=== PATIENT | male | born 1970 | race Caucasian/White ===

== ENCOUNTER 2019-04-07 02:55 | Emergency (ER) | payer SELFPAY ==
[2019-04-07 03:02] VITALS: BP 137/85; PULSE 85; RESP 18; TEMP 36.8; O2SAT 98
--- NOTE | 2019-04-07 03:08 | ED.GENADUL_ITS ---
Discharge Plan Disposition Patient Disposition: HOME Condition: Good Discharge Details Chief Complaint: GenMedical Clinical Impression: Cellulitis of left leg, Acute lymphangitis of left lower extremity Primary Care Provider: Callie Madison ED Provider: Vipul Mota Meds and New Rx's Prescriptions: New cephalexin 500 mg capsule 500 mg PO QID Qty: 36 RF: 0 Discharge Instructions Instructions: Cephalexin (By mouth), Cellulitis (ED) Additional Instructions: Please rest and keep your leg elevated. Drink plenty of fluids to stay hydrated. Antibiotic as directed, next dose due at 10:30 this morning. Follow- up with primary care in the next 24 to 48 hours for recheck. Return to ED for high fever, difficulty breathing, mental status changes, increasing pain/swell ing/redness of the leg. Referrals: Callie Madison [Primary Care Provider] - Medical Decision Making This appears to be a cellulitis with lymphangitic streaking into the groin area. He does not appear toxic. He is not febrile. He is not tachycardic. He does not have significant pain. He has taken Keflex but not on a regular every 6 hour basis. There is no previous history of MRSA. There is no evidence of abscess. Will place a line and check laboratory studies, obtain blood cultures, give 2 g of cefazole IV. Patient labs are okay. White count is normal. There is no shift. BUN is a little high and potassium a little low likely related to his recent GI illness. He is doing better and tolerating p.o. now and this should correct on its own. He has had his antibiotics. We will give prescription for cephalexin and have him follow-up with his primary care in the next 24 to 48 hours for recheck. If he develops fever, difficulty breathing, mental status changes, increasing leg pain/swelling/redness he should return to ED. Lab Data Lab results reviewed: Yes I reviewed the patient's lab results. HPI General Mode of arrival: ambulatory . Date/Time Provider Initiated Documentation: 04/07/19 03:06 . Limitations to Documentation: no limitations . Information obtained by: patient and RN notes reviewed . HPI Narrative: Patient presents to ED with complaint of left lower extremity redness and swelling. Patient notes that a couple weeks ago he woke with an abrasion or possible insect bite in the left lateral calf area. Took a while to heal up. He traveled to [place] last week just returning. He reports that while in [facility] he developed fever, chills, vomiting and diarrhea associated with presumed food poisoning. This was over the weekend. He slowly recovered Friday and Friday. He was actually able to eat and drink yesterday. The fevers and chills are gone. Vomiting has stopped. The diarrhea has almost resolved. But, at about the time though symptoms were resolving, he developed redness in the left lower extremity. That has continued to spread and now he has streaking up his thigh and into the groin. He is not having fevers and chills anymore. He is actually feeling better. He does not have significant pain in the leg at all. His had some leftover Keflex. He took a gram of that on Friday. He took 500 mg Friday morning and Friday night. He reports headache over the weekend which is better. He reports having some URI symptoms last week which are also improving. Related Data Home Medications Medication Instructions Recorded Confirmed cephalexin 500 mg PO QID #36 cap 04/07/19 Previous Rx's Medication Instructions Recorded cephalexin 500 mg PO QID #36 cap 04/07/19 Allergies Allergy/AdvReac Type Severity Reaction Status Date / Time No Known Allergies Allergy Unverified 04/07/19 03:06 General Stated Complaint: GenMedical EVARISTO: 3 Review of Systems Narrative: As per HPI otherwise 8 systems reviewed and negative. FORMERLY [facility] Medical History No active medical problems (Acute) Surgical History No history of previous surgery (Acute) Social History Smoking/Tobacco Use Status: Current every day Alcohol Intake: never Drug use: Socially Substance use type: marijuana Do you feel safe at home: Yes Do you feel safe in your relationship?: Yes Exam Narrative Exam Narrative: Vitals: Afebrile with normal vital signs and room air pulse oximetry. Const: WDWN male in NAD. HEENT: NC/AT. Normal facial exam. Eyes: Normal conjunctiva and sclera. Neck: Supple. Trachea midline. Lungs: Normal respiratory effort. Neuro: A+O x 3. Normal speech, mentation, gait. No focal motor or sensory deficit. Ext: Left lower extremity with erythematous/purplish discoloration involving anterior tibial area extending around the medial calf. It is nontender to palpation. There is streaking up the medial and anterior portion of the thigh. There is erythema and the left groin with lymphadenopathy present. Distal pulses are intact. Other extremities normal. Skin: Left lower extremity findings as described above. Course Vital Signs Vital signs: Vital Signs Temperature 98.2 F 04/07/19 03:02 Pulse 85 04/07/19 03:02 Respiratory Rate 18 04/07/19 03:02 Blood Pressure 137/85 04/07/19 03:02 Pulse Oximetry 98 04/07/19 03:02 Temperature 98.2 F 04/07/19 03:02 Temperature Source Skin 04/07/19 03:02 Pulse 85 04/07/19 03:02 Respiratory Rate 18 04/07/19 03:02 Blood Pressure 137/85 04/07/19 03:02 Blood Pressure Position Sitting 04/07/19 03:02 Pulse Oximetry 98 04/07/19 03:02 Oxygen Delivery Method Room Air 04/07/19 03:02 Oxygen Flow Rate 0 04/07/19 03:02 Pain Level 1 04/07/19 03:02
[2019-04-07 03:50] LABS: Abs Immature Grans 0.02 k/cumm (0.0-0.09); Absolute Basophil Count 0.02 k/cumm (0.0-0.2); Absolute Eosinophil Count 0.16 k/cumm (0.0-0.7); Absolute Lymphocyte Count 1.38 k/cumm (1.2-3.4); Absolute Monocyte Count 0.75 k/cumm (0.11-0.7); Absolute Neutrophil Count 4.04 k/cumm (1.2-6.7); Basophils % 0.3; Eosinophils % 2.5; HCT 40.9 % (40.0-50.0); HGB 14.5 g/dL (13.5-17.5); Immature Grans % 0.3; Lymphocytes % 21.7; Mean Corp. HGB Concentration 35.5 g/dL (32.0-36.0); Mean Corpuscular Hemoglobin 31.3 pg (27.0-33.0); Mean Corpuscular Volume 88.1 fL (80-95); Mean Platelet Volume 10.9 fL (8.0-11.0); Monocytes % 11.8; Neutrophils % 63.4; Platelet Count 169 x1000/uL (130-400); RBC 4.64 m/cumm (4.50-6.00); RBC Distribution Width 12.4 % (11.8-14.1); White Blood Cell Count 6.37 k/cumm (4.4-10.8)
[2019-04-07 04:02] LABS: ALT 72 U/L (16-63); AST 41 U/L (15-37); Albumin 3.1 g/dL (3.4-5.0); Alkaline Phosphatase 103 U/L (46-116); BUN 29 mg/dL (7-18); Bilirubin, Total 0.4 mg/dL (0.2-1.0); CREATININE 0.94 mg/dL (0.70-1.30); Calcium 8.6 mg/dL (8.5-10.1); Chloride 102 mmol/L (98-107); Glucose 104 mg/dL (74-106); Potassium 3.3 mmol/L (3.5-5.1); Sodium 139 mmol/L (136-145); Total Protein 7.4 g/dL (6.4-8.2)
[2019-04-07] MEDS: ceFAZolin 2 GM/50 ML BAG IVPB (04:10)
[2019-04-07 05:35] VITALS: BP 122/74; PULSE 78; RESP 18; TEMP 36.8
== END 2019-04-07 05:35 | disposition home or self-care (01) ==
PROVIDERS: Emergency Provider Emergency Medicine; PCP Family Medicine
DX: L03.116 Cellulitis of left lower limb (principal); L03.126 Acute lymphangitis of left lower limb
CPT/HCPCS: 36415; 80053; 87040; 96365; 99284; 85025; J0690

== ENCOUNTER 2020-06-19 16:39 | Outpatient (REF) | payer OTHER, SELFPAY ==
[2020-06-19 13:15] LABS: ALT 26 U/L (16-63); AST 15 U/L (15-37); Albumin 3.7 g/dL (3.4-5.0); Alkaline Phosphatase 84 U/L (46-116); Anion Gap 10.4 mmol/L (3-11); BUN 14 mg/dL (7-18); Bilirubin, Total 0.3 mg/dL (0.2-1.0); CO2 23.6 mmol/L (21.0-32.0); CREATININE 0.9 mg/dL (0.70-1.30); Calcium 8.9 mg/dL (8.5-10.1); Calculated LDL 137 mg/dL (<100); Chloride 110 mmol/L (98-107); Cholesterol 197 mg/dL (<200); Glucose 71 mg/dL (74-106); HDL Cholesterol 36 mg/dL (40-60); Potassium 4.3 mmol/L (3.5-5.1); Sodium 144 mmol/L (136-145); Total Protein 6.9 g/dL (6.4-8.2); Triglyceride 123 mg/dL (<150)
== END 2020-06-19 16:40 | disposition home or self-care (01) ==
LOC: NCHCN 16:39
PROVIDERS: PCP Family Medicine; Visit Provider Family Medicine
DX: Z00.00 Encounter for general adult medical examination without abnormal findings (principal); Z13.220 Encounter for screening for lipoid disorders; Z13.228 Encounter for screening for other metabolic disorders
CPT/HCPCS: 80053; 80061

== ENCOUNTER 2020-10-30 06:10 | Day surgery (SDC) | payer OTHER, SELFPAY ==
[2020-10-30 06:24] VITALS: BP 108/77; PULSE 61; RESP 20; TEMP 36.5; O2SAT 99
--- NOTE | 2020-10-30 06:29 | W.COLOREPORT ---
Date of service: 10/30/20 Time of Service: :33 Colonoscopy Report Date of procedure: 10/30/20 Pre-op diagnosis general: Colon Cancer Screening Post-op diagnosis procedure note: other (colorectal polyps and internal hemorrhoids) Procedure: Colonoscopy with polypectomy Surgeon: Kristy Pinto Anesthesia Type: General:No Airway (ASA 2/Jack Tyson, GAIL) Estimated blood loss (mL): 3 Pathology: other (Descending, sigmoid and rectal polyps) Complications: None Disposition: same day Indications: The patient is here for Colonoscopy pre-op. He has no family history of colon cancer. He has not had any bowel habit changes. -Discussed colonoscopy bowel prep as well as the procedure. Discussed possible complications of the procedure to include bleeding, pain, perforation, missed small lesion/polyp, sore throat, aspiration and adverse reaction to the medications. Questions were answered to patient?s satisfaction. No guarantees were implied or given. Prep: Miralax/Dulcolax Procedure Start Time: :33 Procedure End Time: :56 Retraction Time: 15 minutes Findings: 3 small polyps Grade 1 internal hemorrhoids Procedure Description: After informed consent was obtained the patient was taken to the procedure room and placed in a left decubitous position. Monitors were applied and a time out was done. The patients name, date of , procedure, allergies to medications and metal in their body was reviewed. The patient was then sedated. Once sedated and comfortable a rectal exam was done. External exam was normal. Internal exam revealed a normal sphincter tone and no palpable masses. The prostate felt smooth. The scope was then introduced and retro-flexed. Grade 1 internal hemorrhoids were indetified as well as one rectal polyp on retro-flexion. No masses were identified on retro-flexion. The scope was then advanced to the cecum without difficulty. The ileocecal vlave and appendiceal orifice were identified. The prep was good. The scope was then slowly retracted over 15 minutes back into the rectum. Polyps were removed with cold forceps in the descending colon, sigmoid colon and rectum. There was no diverticulosis noted. The scope was removed and the patient was woken up and taken back to Same day surgery in stable condition. The patient tolerated the procedure well and there were no immediate complications. Follow up: The patient should follow up in 5 years unless they develop changes in bowel habits or other new gastrointestinal complaints.
--- NOTE | 2020-10-30 06:30 | W.PM.DSUDISC ---
Discharge Plan Disposition Patient Disposition: HOME Condition: Good Discharge Details Reason For Visit: Colonoscopy Attending Provider: Kristy Pinto Primary Care Provider: Callie Madison Home Meds and New Rx's Prescriptions: Continued multivitamin Tablet 1 tab PO DAILY RF: 0 Discharge Instructions Instructions: Hemorrhoids (DC), Colorectal Polyps (DC) Additional Instructions: Findings: 3 small polyps Please call if you develop: fevers >101.5 Nausea or Vomiting Abdominal pain that is not transient Rectal bleeding that is more then a tbsp A hard abdomen and inability to pass gas DAY SURGERY UNIT POST ENDOSCOPY INSTRUCTIONS Instructions for everyone who is given Anesthesia: For your safety, please do the following for the next 24 Hours: a. Do not drive or operate dangerous equipment b. Do not drink alcohol beverages or use any recreational drugs for the first 24 hours or while taking pain medications. The medications in your body may have a reaction that can be dangerous. c. Do not make any important decisions or sign any important papers 1. Generally there are no restrictions on your activity after a day or so has gone by, but you may feel a bit fatigued for a few days. 2. After you arrive home you may have a light meal and return to a normal diet as you can tolerate it without feeling sick to your stomach. 3. After surgery, you may feel pain or discomfort. This should be only transient, but if it persists please contact your doctor. 4. If there are any questions regarding the findings of your procedure, please feel free to contact your doctor. 6. If you are unable to contact your doctor with a problem, contact the hospital at [phone]. 7. Continue all your regular medications unless directed otherwise. I understand the above instructions and have no questions. Signature of Patient or Responsible Adult Escort Date/Time Name of Responsible Adult Escort Signature of Nurse Date/Time Activity:: Activity as Tolerated Diet:: As Tolerated Discharge Orders Discharge Orders: Discharge Order (Routine); Ordered 10/30/20 Ordered By: Kristy Pinto
--- NOTE | 2020-10-30 07:08 | W.ANESPRE ---
General Info Date of Service Date Performed: 10/30/20 Height: 5 ft 11 in Weight: 73.4 kg Body Mass Index (BMI): 22.6 Surgical Procedure: Operation Date: 10/30/20 07:35 Proposed Procedures Side Surgeon p Colonoscopy Kristy Pinto MD Meds Allergies and Home Medications Allergies Allergy/AdvReac Type Severity Reaction Status Date / Time No Known Allergies Allergy Unverified 10/30/20 06:20 Home Medication Medication Instructions Recorded multivitamin 1 tab PO DAILY 07/18/20 Current Visit Medications: Current Medications Generic Name Dose Route Start Last Admin Trade Name Freq PRN Reason Stop Dose Admin Hyoscyamine Sulfate 0.125 mg 10/30/20 06:31 Hyoscyamine 0.125 Mg Sl/Oral/Chew SL DIRECTED PRN Ringer's Solution 1,000 mls @ 80 mls/hr 10/30/20 06:00 IV 11/26/20 23:59 INFUSION GALEN IV Miscellaneous Supplies 1 each 10/30/20 06:00 Iv Access IV 11/26/20 23:59 DIRECTED GALEN Ondansetron HCl 4 mg 10/30/20 06:31 Ondansetron 4 Mg/2 Ml Vial IVP Q4H PRN PRN Nausea / Vomiting Sodium Chloride 0 ml 10/30/20 06:00 Normal Saline Flush 10 Ml Syr IV 11/26/20 23:59 PRN PRN Sodium Chloride 0 ml 10/30/20 06:00 Normal Saline 10 Ml Vial IJ 11/26/20 23:59 DIRECTED PRN Sterile Water 0 ml 10/30/20 06:00 Water,Injection,Sterile 10 Ml Vial IJ 11/26/20 23:59 DIRECTED PRN PFSH Active Problems Active Problems: Problem Status Onset Code Tobacco dependence F17.200 Screening for colon cancer Z12.11 No history of previous surgery No active medical problems Medical History Medical History No active medical problems Surgical History Surgical History No history of previous surgery Tobacco Smoking/Tobacco Use Status: Current every day Tobacco Type: cigarettes Smoking cigarettes per day: 15 Tobacco: How many years used: 40 Alcohol Alcohol Intake: never Substance Use Substance use: Daily Substance use type: marijuana Vital Signs and Lab Results Vital Signs Most Recent Vital Signs in EMR: Most Recent Vital Signs Temp Pulse Resp BP Pulse Ox 36.5 C 61 20 108/77 99 10/30/20 06:24 10/30/20 06:24 10/30/20 06:24 10/30/20 06:24 10/30/20 06:24 Lab Results Blood Type / Crossmatch: No Data to Display Complete Blood Count: No Data to Display Complete Metabolic Panel: No Data to Display Liver Function Panel: No Data to Display Coagulation Panel: No Data to Display Cardiac Panel: No Data to Display Arterial Blood Gas: No Data to Display Venous Blood Gas: No Data to Display Pancreas Panel: No Data to Display Thyroid Panel: No Data to Display Infectious Disease: No Data to Display Blood Cultures: No Data to Display Toxicology Panel: No Data to Display Anesthesia Assessment and Plan Anesthesia History Personal History: No History of Anesthesia Complications Family History: No Family History of Anesthesia Complications Exercise Tolerance Exercise Tolerance: Metabolic Equivalents>4 Pertinent Negatives Pertinent Negatives: No Symptoms of GERD, No Major Cardiovascular Symptoms or Complaints, No Major Pulmonary Symptoms or Complaints and No History of CVA/TIA Cardiac & Pulmonary Exam Cardiac Exam: Normal S1/S2 Heart Sounds Pulmonary Exam: Clear Bilateral Breath Sounds Airway Exam Known Difficult Airway: No Mallampati Class: 1 Mouth Opening: Normal (> 3cm) Thyromental Distance: Greater than 3 cm Neck Range of Motion: Full ROM Neck Circumference: Normal Teeth Condition: Normal Dentition Airway Comments: Top front teeth chipped ASA Classification ASA Score: ASA 2 Emergency Case?: No NPO Status NPO Status: NPO Clears >2 hours, Solids >8 hours Anesthesia Plan Resuscitation Status: Full Code Anesthesia Technique: General Anesthesia Airway Planned: Natural Airway Monitors Used: Standard Monitors
[2020-10-30 07:12] VITALS: BMI 22.6
--- NOTE | 2020-10-30 07:12 | W.ANESPRE ---
General Info Height: 5 ft 11 in Weight: 73.4 kg Body Mass Index (BMI): 22.6 Surgical Procedure: Operation Date: 10/30/20 07:35 Proposed Procedures Side Surgeon p Colonoscopy Kristy Pinto MD Meds Allergies and Home Medications Allergies Allergy/AdvReac Type Severity Reaction Status Date / Time No Known Allergies Allergy Unverified 10/30/20 06:20 Home Medication Medication Instructions Recorded multivitamin 1 tab PO DAILY 07/18/20 Current Visit Medications: Current Medications Generic Name Dose Route Start Last Admin Trade Name Freq PRN Reason Stop Dose Admin Hyoscyamine Sulfate 0.125 mg 10/30/20 06:31 Hyoscyamine 0.125 Mg Sl/Oral/Chew SL DIRECTED PRN Ringer's Solution 1,000 mls @ 80 mls/hr 10/30/20 06:00 IV 11/26/20 23:59 INFUSION GALEN IV Miscellaneous Supplies 1 each 10/30/20 06:00 Iv Access IV 11/26/20 23:59 DIRECTED GALEN Ondansetron HCl 4 mg 10/30/20 06:31 Ondansetron 4 Mg/2 Ml Vial IVP Q4H PRN PRN Nausea / Vomiting Sodium Chloride 0 ml 10/30/20 06:00 Normal Saline Flush 10 Ml Syr IV 11/26/20 23:59 PRN PRN Sodium Chloride 0 ml 10/30/20 06:00 Normal Saline 10 Ml Vial IJ 11/26/20 23:59 DIRECTED PRN Sterile Water 0 ml 10/30/20 06:00 Water,Injection,Sterile 10 Ml Vial IJ 11/26/20 23:59 DIRECTED PRN PFSH Active Problems Active Problems: Problem Status Onset Code Tobacco dependence F17.200 Screening for colon cancer Z12.11 No history of previous surgery No active medical problems Medical History Medical History No active medical problems Surgical History Surgical History No history of previous surgery Tobacco Smoking/Tobacco Use Status: Current every day Tobacco Type: cigarettes Smoking cigarettes per day: 15 Tobacco: How many years used: 40 Alcohol Alcohol Intake: never Substance Use Substance use: Daily Substance use type: marijuana Vital Signs and Lab Results Vital Signs Most Recent Vital Signs in EMR: Most Recent Vital Signs Temp Pulse Resp BP Pulse Ox 36.5 C 61 20 108/77 99 10/30/20 06:24 10/30/20 06:24 10/30/20 06:24 10/30/20 06:24 10/30/20 06:24 Lab Results Blood Type / Crossmatch: No Data to Display Complete Blood Count: No Data to Display Complete Metabolic Panel: No Data to Display Liver Function Panel: No Data to Display Coagulation Panel: No Data to Display Cardiac Panel: No Data to Display Arterial Blood Gas: No Data to Display Venous Blood Gas: No Data to Display Pancreas Panel: No Data to Display Thyroid Panel: No Data to Display Infectious Disease: No Data to Display Blood Cultures: No Data to Display Toxicology Panel: No Data to Display Anesthesia Assessment and Plan Anesthesia History Personal History: No History of Anesthesia Complications Family History: No Family History of Anesthesia Complications Airway Exam Known Difficult Airway: No Mallampati Class: 1 Mouth Opening: Normal (> 3cm) Thyromental Distance: Greater than 3 cm Neck Range of Motion: Full ROM Neck Circumference: Normal Teeth Condition: Normal Dentition
[2020-10-30] MEDS: Lactated Ringers 1,000 ML 80 ML IV (07:19)
--- NOTE | 2020-10-30 07:50 | BOWEL_PTH ---
PATIENT: Cecilio Weaver LOC: [facility] U#:[id number] AGE/SX: 50/M ROOM: RE10/30/[address]: Kristy Pinto MD : 1970 BED: DIS: 10/30/2020 SPEC #: [id number] RECD: 10/30/20 12:51 STATUS: KLAUDIA REQ #: [id number] JOS: 10/30/20 07:[address]: Kristy Pinto DEPT: Surgical Specimen RECD BY: Deedee Corado ENTERED: 10/30/20 12:51 SP TYPE: Bowel OTHR DR: Callie Madison Tissues: 1 - BIOPSY BOWEL 2 - BIOPSY BOWEL 3 - BIOPSY BOWEL Procedures: GROSS AND MICRO LEVEL 4 Comments: [id number]
[2020-10-30 08:07] VITALS: BP 113/80; PULSE 54; RESP 15; TEMP 36.3; O2SAT 97
--- NOTE | 2020-10-30 09:05 | W.ANESPOSTOP ---
Postoperative Evaluation Date, Time and Location Date Performed: 10/30/20 Time Performed: 09:05 Patient Location: Day Surgery Unit Vital Signs Most Recent Imported Vital Signs: Most Recent Vital Signs Temp Pulse Resp BP Pulse Ox 36.3 C L 54 L 15 113/80 97 10/30/20 08:07 10/30/20 08:07 10/30/20 08:07 10/30/20 08:07 10/30/20 08:07 Most Recent Manually Entered Vital Signs: Adult Blood Pressure: 140/73 Heart Rate: 69 Respirations: 16 Oxygen Saturation (%): 98 Temperature (C): 36 C Pain Score (0-10 Scale): 0 Pain Score Most Recent Pain Score: Most Recent Pain Score Pain Level 0 10/30/20 08:07 Assessment Mental Status: Awake (Alert & Oriented to Patient Baseline) Airway and Respiratory Function: Patent airway with normal (patient baseline) respiratory exam Cardiovascular Function: Hemodynamically Stable Hydration Status: Adequately Hydrated Nausea & Vomiting: No Nausea or Vomiting Pain: Pt. Denies Any Pain Peripheral Nerve Block: Patient did not receive a nerve block
[2020-10-30 09:06] VITALS: BP 140/73; PULSE 69; RESP 16; TEMPC 36; O2SAT 98
[2020-10-30 09:13] VITALS: BP 117/64; PULSE 54; RESP 18; TEMP 36.1; O2SAT 98
[2020-10-30 09:40] VITALS: BP 154/80; PULSE 59; RESP 17; TEMP 36.2; O2SAT 99
== END 2020-10-30 09:35 | disposition home or self-care (01) ==
PROVIDERS: PCP Family Medicine; Visit Provider Surgery
PROC: 0DJD8ZZ Inspection of Lower Intestinal Tract, Via Natural or Artificial Opening Endoscopic (ICD-10-PCS; CPT 45378; principal; 2020-10-30 07:30)
DX: Z12.11 Encounter for screening for malignant neoplasm of colon (principal); D12.5 Benign neoplasm of sigmoid colon; K62.1 Rectal polyp; K64.0 First degree hemorrhoids
CPT/HCPCS: 45380; 88305; J2001

== ENCOUNTER 2021-08-13 13:25 | Outpatient (REF) | payer SELFPAY ==
[2021-08-13 14:44] LABS: ALT 29 U/L (16-63); AST 11 U/L (15-37); Albumin 3.6 g/dL (3.4-5.0); Alkaline Phosphatase 101 U/L (46-116); Anion Gap 8.4 mmol/L (3-11); BUN 13 mg/dL (7-18); Bilirubin, Total 0.3 mg/dL (0.2-1.0); CO2 25.6 mmol/L (21.0-32.0); CREATININE 0.8 mg/dL (0.70-1.30); Calcium 8.6 mg/dL (8.5-10.1); Calculated LDL 149 mg/dL (<100); Chloride 109 mmol/L (98-107); Cholesterol 203 mg/dL (<200); Glucose 89 mg/dL (74-106); HDL Cholesterol 43 mg/dL (40-60); Potassium 4.8 mmol/L (3.5-5.1); Sodium 143 mmol/L (136-145); Total Protein 7.1 g/dL (6.4-8.2); Triglyceride 55 mg/dL (<150)
== END 2021-08-13 13:26 | disposition home or self-care (01) ==
LOC: NCHCN 13:25
PROVIDERS: PCP Family Medicine; Visit Provider Family Medicine
DX: Z00.00 Encounter for general adult medical examination without abnormal findings (principal); Z13.220 Encounter for screening for lipoid disorders
CPT/HCPCS: 80053; 80061

== ENCOUNTER 2022-12-06 18:37 | Emergency (ER) | payer SELFPAY ==
[2022-12-06] VITALS (15 sets, daily range): BP systolic 132–153; BP diastolic 70–84; PULSE 60–69; RESP 18; TEMP 37.3; O2SAT 95–100
--- NOTE | 2022-12-06 18:30 | RT.EKG_ITS ---
APPROVED REPORT Exam: Resting ECG Reason for Exam: Chest pain Patient Location: E HR:67 bpm ECG Measurements Heart Rate 67 AXIS TN 154 P 79 QRSd 102 QRS 57 QT 401 T 54 QTc 425 Conclusion Sinus rhythm...normal P axis, V-rate 60- 99 Probable left atrial enlargement...P >50mS, <-0.10mV V1 ST elev, probable normal early repol pattern...ST elevation, age<55
--- NOTE | 2022-12-06 19:00 | DI.RAD_ITS ---
Exam(s) XR SHOULDER RT COMPLETE 2+V EXAM: XR SHOULDER RT COMPLETE 2+V CLINICAL HISTORY: pain s/p fall. TECHNIQUE: 2D digital imaging was performed of the right shoulder. Four images were obtained. AP, Grashey, Y-view and axillary views were obtained. COMPARISON: No exams were available for comparison FINDINGS: BONES: No acute fracture is present. No bony destructive lesion is seen. There is an old healed right clavicular fracture deformity. JOINTS: No dislocation present. The glenohumeral and acromioclavicular joints are unremarkable. SOFT TISSUE: Normal. IMPRESSION: No acute fracture or dislocation. DATA REPOSITORY: RADIATION DOSE DELIVERED:
--- NOTE | 2022-12-06 19:00 | DI.CT_ITS ---
Exam(s) CT CERVICAL SPINE WO EXAM: CT CERVICAL SPINE WO CLINICAL HISTORY: pain s/p fall. TECHNIQUE: Imaging Protocol: Axial computed tomography images with coronal and sagittal reformatted images were created and reviewed COMPARISON: No exams were available for comparison FINDINGS: Bones: Degenerative changes are seen in the cervical spine particularly at C5-6 and C6-C7. Soft Tissues: Unremarkable. Lung Apices: Emphysematous changes are seen in the lung apices. Visualized paranasal sinuses: There is mucosal thickening in the left maxillary sinus with thickening of the mason of the sinus suggesting chronic sinus disease. The remaining visualized paranasal sinu ses and mastoid air cells are clear. IMPRESSION: No acute fracture or subluxation in the cervical spine. RADIATION DOSE DELIVERED: 505.39mGy.cm Total DLP 505.39mGy.cm Total DLP DATA REPOSITORY: All CT scans at this facility are submitted to the National Radiology Data Registry (NRDR) Dose Index Registry (DIR) with the [employer] (A[employer]). RADIATION OPTIMIZATION: All CT scans at this facility use at least one of these dose optimization te chniques: automated exposure control; mA and/or kV adjustment per patient size (includes targeted exa ms where dose is matched to clinical indication); or iterative reconstruction.
--- NOTE | 2022-12-06 19:00 | DI.CT_ITS ---
Exam(s) CT CHEST WO EXAM: CT CHEST WO CLINICAL HISTORY: right sided pain s/p fall. TECHNIQUE: Imaging protocol: Axial computed tomography images were obtained and coronal and sagittal reformatted images were created and reviewed. COMPARISON: CR LEFT SHOULDER COMP. POST REDUC from 07/11/2016 FINDINGS: Tracheobronchial tree: Patent where visualized. Pulmonary parenchyma: No consolidation or dominant measurable mass. No architectural distortion. Ther e is a calcified pulmonary nodule in the right upper lobe. There is an 8 mm pulmonary nodule seen in the right middle lobe. There is a 6 mm pulmonary nodule in the right middle lobe. There is a 5 mm pulmonary nodule in the right lower lobe. There is a calcified nodule associated with the left fissu re. There are dependent infiltrates seen in the lungs. There are few ground-glass nodules scattered in the lung nguyen. Mediastinum and Karishma: There are enlarged mediastinal lymph nodes. There also calcified hilar lymph n odes consistent with prior granulomatous disease. The esophagus is unremarkable. Thyroid gland: Unremarkable. Pleura: No effusion or pneumothorax. Heart: The heart is not dilated. Mild coronary artery calcification. No pericardial effusion. Aorta: Thoracic aorta non-dilated. Atherosclerosis is present. Upper abdomen: There is a 1.5 cm hypodensity in the periphery of the spleen. Lymph nodes: No significant axillary adenopathy. Soft tissues: There is infiltration in the soft tissues in the supraclavicular region. Bones:Within normal limits for the patient's age. IMPRESSION: 1. No evidence of a pneumothorax or fracture. 2. Multiple noncalcified pulmonary nodules. The largest measures [address] scan in 3-6 months is r ecommended. (Adriana et al, 2017). 3. Centrilobular ground-glass nodules bilaterally which may reflect an infectious or inflammatory pro cess. 4. Hypodensity in the spleen. If there is concern for splenic injury, CT scan of the abdomen should be obtained for further evaluation. RADIATION DOSE DELIVERED: 600.01mGy.cm Total DLP 600.01mGy.cm Total DLP DATA REPOSITORY: All CT scans at this facility are submitted to the National Radiology Data Registry (NRDR) Dose Index Registry (DIR) with the [employer] (ACR). RADIATION OPTIMIZATION: All CT scans at this facility use at least one of these dose optimization te chniques: automated exposure control; mA and/or kV adjustment per patient size (includes targeted exa ms where dose is matched to clinical indication); or iterative reconstruction.
--- NOTE | 2022-12-06 19:08 | ED.GENADUL_ITS ---
Discharge Plan Disposition Patient Disposition: Home Condition: Stable Discharge Details Clinical Impression: Cervical strain, Chest wall contusion, Contusion of shoulder, right Primary Care Provider: Callie Madison ED Provider: Augustus Reinoso Home Meds and New Rx's Prescriptions: Continued multivitamin Tablet 1 tab PO DAILY Discharge Instructions Instructions: Contusion in Adults (ED) Additional Instructions: follow up with your primary care provider in 1 week if pain is not improving. You should also have repeat imaging of your chest in 3-6 months If you feel more ill, have severe worsening pain or worsening trouble breathing return to the emergency department Medical Decision Making 52 yo male who denies chronic medical problems comes in with cc of right sided chest and shoulder pain s/p fall on Friday. He states he fell off his skateboard on Friday, was wearing his helmet at the time and had no loc. Has had right shoulder and chest pain since so came here. Also notes some neck soreness. No abdomen, head, back pain. He is caox4 in no distress on arrival. He has no signs of trauma to the head, perrl, eomi. He has right lower lateral neck tenderness, no midline pain. He also has right anterior chest pain in the mid clavicular line over the 4-8 ribs. No crepitus, clear lungs. Also notes right l ateral shoulder tenderness, does have full rom. No humerus, elbow, forearm, wrist or elbow pain, no abdominal tenderness. suspect contusion and cervical strain, will obtain ct c spine and ct chest to eval for traumatic injuries and right shoulder xray. pt stable imaging unremarkable for acute findings, has no abodminal pain and no tenderness at all so doubt splenic injury in the area that they comment on as a hypodensity in the spleen. Has nodules and denies fevers or cough so doubt infectious etiology, he is a smoker and advised to have repeat imaging in 3-6 months. He is stable for d/c, advised to f/u with pcp and return precautions given Differential Diagnosis Differential Diagnosis: fracture, contusion Imaging Data Radiologic Study: Attestation: I personally reviewed and interpreted this imaging study as follows: Imaging: X-Ray Radiologist's impression: IMPRESSION: 1. No evidence of acute pulmonary parenchymal injury. No pneumothorax. 2. Centrilobular ground-glass nodules noted throughout the bilateral lung nguyen. Correlate with clinical findings to evaluate for possible infectious/inflammatory etiology. 3. Multiple small sub solid pulmonary nodules noted measuring up to [address] Chest at 3-6 months. Subsequent management based on the most suspicious nodule(s). (Reference: Ananda) 4. Small hypodensity in the spleen partially visualized. Compare with prior imaging. If there is clinical concern for splenic injury, CT may be obtained for further evaluation. 5. No acute fracture. Radiologic Study #2: Attestation: I personally reviewed and interpreted this imaging study as follows: Imaging: X-Ray Radiologist's impression: PROCEDURE INFORMATION: Exam: XR Right Shoulder Exam date and time: 12/06/2022 7:54 PM Age: 52 years old Clinical indication: Pain; Shoulder; Right; Additional info: Pain S/P fall TECHNIQUE: Imaging protocol: Radiologic exam of the right shoulder. Views: 2 or more views. COMPARISON: CT CHEST WO 12/06/2022 7:49 PM FINDINGS: Bones/joints: There is an old fracture in the mid right clavicle noted. No evidence of acute fracture or dislocation. Soft tissues: Normal. IMPRESSION: No acute fracture or dislocation. Radiologic Study #3: Attestation: I personally reviewed and interpreted this imaging study as follows: Imaging: CT Scan Radiologist's impression: PROCEDURE INFORMATION: Exam: CT Cervical Spine Without Contrast Exam date and time: 12/06/2022 7:47 PM Age: 52 years old Clinical indication: Injury or trauma; Fall; Concussion/head injury; Additional info: Pain S/P fall TECHNIQUE: Imaging protocol: Computed tomography of the cervical spine without contrast. Radiation optimization: All CT scans at this facility use at least one of these dose optimization techniques: automated exposure control; mA and/or kV adjustment per patient size (includes targeted exams where dose is matched to clinical lindsey cation); or iterative reconstruction. COMPARISON: CR LEFT SHOULDER COMP. POST REDUC 07/11/2016 3:45 PM FINDINGS: Bones/joints: No acute fracture. There is multilevel degenerative disc disease and bilateral uncovertebral and facet arthropathy causing bilateral neural foraminal narrowing most prominent at C5-C6 and C6-C7, which appears severe on the right. No significant spinal canal stenosis. Lungs: Lung apices are normal. Soft tissues: Unremarkable. IMPRESSION: No acute fracture. Multilevel degenerative changes as described. ECG Data Attestation: I personally reviewed and interpreted this ECG (s) as follows: Prior ECG tracings: not available for review Interpretation: sinus rate of 67 pr 154, no stemi HPI General Date/Time Provider Initiated Documentation: 12/06/22 18:44 . Limitations to Documentation: no limitations . Information obtained by: patient . History of Present Illness 52 year old M presents to the emergency department with the chief complaint of right sided chest pain s/p fall, described as moderate, Patient started experiencing this day(s) (2) and it has been constant. No relieving factors improve symptom(s), No exacerbating factors reported . Patient notes no other symptoms.. Patient did receive the following treatments prior to arrival, none Related Data Home Medications Medication Instructions Recorded Confirmed multivitamin 1 tab PO DAILY 07/18/20 12/06/22 Allergies Allergy/AdvReac Type Severity Reaction Status Date / Time No Known Allergies Allergy Unverified 12/06/22 18:46 General Stated Complaint: Fall/Non TraumaCriteria EVARISTO: 4 Review of Systems All systems reviewed & are unremarkable except as noted in HPI and below Constitutional Constitutional: Denies chills, Denies fever(s) and Denies weakness Cardiovascular Cardiovascular: Denies dyspnea Respiratory Respiratory: Denies cough and Denies dyspnea Gastrointestinal Gastrointestinal: Denies abdominal pain, Denies nausea and Denies vomiting Musculoskeletal Musculoskeletal: Denies joint swelling Neurologic Neurologic: Denies weakness PFSH All Active Problems (Updated 12/06/22 @ 21:02 by Augustus Reinoso MD) Cervical strain (Acute) Chest wall contusion (Acute) Contusion of shoulder, right (Acute) Tubular adenoma (Acute ~10/2020) Colon polyp, hyperplastic (Acute ~10/2020) Tobacco dependence (Acute) Screening for colon cancer (Acute) No history of previous surgery (Acute) No active medical problems (Acute) Surgical History (Updated 11/02/20 @ 13:30 by Lexy Alejandre) History of colonoscopy (~10/2020) Social History (Updated 10/20/20 @ 10:30 by AIME Quintero) Smoking/Tobacco Use Status: Current every day Tobacco Type: cigarettes Tobacco: How many years used: 40 Smoking risk assessment performed?: Yes Alcohol Intake: never Drug use: Daily Substance use type: marijuana Do you feel safe at home: Yes Do you feel safe in your relationship?: Yes Exam Const General: no acute distress Orientation: alert HENSC Head: normal to inspection Ears: external ears normal General nose exam: external nose normal Mouth: moist mucous membranes Eyes General: appearance normal, both eyes and all related structures Neck Neck: normal visual inspection Chest Chest: normal inspection of the chest and no crepitus Resp Effort & Inspection: normal respiratory effort and able to speak in complete sentences Cardio Rate: regular rate GI Palpation: soft and nontender Skin General skin exam: no rashes or lesions noted Neuro General: patient alert and patient oriented x3 Extrem General: normal to inspection Psych Mental Status: mental status grossly normal Course Vital Signs Vital signs: Vital Signs Temperature 37.3 C 12/06/22 18:47 Pulse 65 12/06/22 18:47 Respiratory Rate 18 12/06/22 18:47 Blood Pressure 132/70 12/06/22 18:47 Pulse Oximetry 98 12/06/22 18:47 Temperature 37.3 C 12/06/22 18:47 Pulse 65 12/06/22 18:47 Respiratory Rate 18 12/06/22 18:47 Blood Pressure 132/70 12/06/22 18:47 Blood Pressure Position Supine 12/06/22 18:47 Pulse Oximetry 98 12/06/22 18:47 Oxygen Delivery Method Room Air 12/06/22 18:47 Oxygen Flow Rate 0 12/06/22 18:47 Pain Level 6 12/06/22 18:59
[2022-12-06] MEDS: Ibuprofen 600 MG TAB PO (19:21)
--- NOTE | 2022-12-06 20:21 | DI.VRAD_ITS ---
PROCEDURE INFORMATION: Exam: CT Cervical Spine Without Contrast Exam date and time: 12/06/2022 7:47 PM Age: 52 years old Clinical indication: Injury or trauma; Fall; Concussion/head injury; Additional info: Pain S/P fall TECHNIQUE: Imaging protocol: Computed tomography of the cervical spine without contrast. Radiation optimization: All CT scans at this facility use at least one of these dose optimization techniques: automated exposure control; mA and/or kV adjustment per patient size (includes targeted exams where dose is matched to clinical indication); or iterative reconstruction. COMPARISON: CR LEFT SHOULDER COMP. POST REDUC 07/11/2016 3:45 PM FINDINGS: Bones/joints: No acute fracture. There is multilevel degenerative disc disease and bilateral uncovertebral and facet arthropathy causing bilateral neural foraminal narrowing most prominent at C5-C6 and C6-C7, which appears severe on the right. No significant spinal canal stenosis. Lungs: Lung apices are normal. Soft tissues: Unremarkable. IMPRESSION: No acute fracture. Multilevel degenerative changes as described. Dictated and Authenticated by: Nicole Brown MD. Ordering:CRISTA Coffman MD
--- NOTE | 2022-12-06 20:38 | DI.VRAD_ITS ---
PROCEDURE INFORMATION: Exam: XR Right Shoulder Exam date and time: 12/06/2022 7:54 PM Age: 52 years old Clinical indication: Pain; Shoulder; Right; Additional info: Pain S/P fall TECHNIQUE: Imaging protocol: Radiologic exam of the right shoulder. Views: 2 or more views. COMPARISON: CT CHEST WO 12/06/2022 7:49 PM FINDINGS: Bones/joints: There is an old fracture in the mid right clavicle noted. No evidence of acute fracture or dislocation. Soft tissues: Normal. IMPRESSION: No acute fracture or dislocation. Dictated and Authenticated by: Nicole Brown MD. Ordering:CRISTA Coffman MD
--- NOTE | 2022-12-06 20:49 | DI.VRAD_ITS ---
PROCEDURE INFORMATION: Exam: CT Chest Without Contrast; Diagnostic Exam date and time: 12/06/2022 7:49 PM Age: 52 years old Clinical indication: Injury or trauma; Fall; Blunt trauma (contusions or hematomas); Additional info: Pain S/P fall TECHNIQUE: Imaging protocol: Diagnostic computed tomography of the chest without contrast. 3D rendering (Not supervised by radiologist): MIP and/or 3D reconstructed images were created by the technologist. Radiation optimization: All CT scans at this facility use at least one of these dose optimization techniques: automated exposure control; mA and/or kV adjustment per patient size (includes targeted exams where dose is matched to clinical indication); or iterative reconstruction. COMPARISON: CT CERVICAL SPINE WO 12/06/2022 7:47 PM FINDINGS: Lungs: Partially calcified nodule in the right lung apex may represent a granuloma. A 6 mm nodule is noted in the right lower lobe (image 40, series 3), a 7 mm nodule is noted in the right middle lobe (image 47) and adjacent 8 mm nodule in the right middle lobe (image 51). Mild centrilobular ground-glass nodules noted diffusely throughout the bilateral lung nguyen. Linear atelectasis seen predominantly at the lung bases. Pleural spaces: No pneumothorax. No pleural effusion. Heart: No cardiomegaly. No pericardial effusion. Lymph nodes: No enlarged lymph nodes. Vasculature: No aortic aneurysm. Bones/joints: No acute fracture. Soft tissues: Unremarkable. Other findings: A small hypodensity is seen at the periphery of the spleen measuring approximately 1.5 cm (image 76, series 3). IMPRESSION: 1. No evidence of acute pulmonary parenchymal injury. No pneumothorax. 2. Centrilobular ground-glass nodules noted throughout the bilateral lung nguyen. Correlate with clinical findings to evaluate for possible infectious/inflammatory etiology. 3. Multiple small sub solid pulmonary nodules noted measuring up to [address] Chest at 3-6 months. Subsequent management based on the most suspicious nodule(s). (Reference: Ananda) 4. Small hypodensity in the spleen partially visualized. Compare with prior imaging. If there is clinical concern for splenic injury, CT may be obtained for further evaluation. 5. No acute fracture. REFERENCES: Ananda Patel, et al. Guidelines for Management of Incidental Pulmonary Nodules Detected on CT Images: From the Fleischner Society 2017. Radiology. 2017;284(1):228-243. Dictated and Authenticated by: Nicole Brown MD. Ordering:CRISTA Coffman MD
== END 2022-12-06 21:16 | disposition home or self-care (01) ==
PROVIDERS: Emergency Provider Emergency Medicine; PCP Family Medicine
DX: S16.1XXA Strain of muscle, fascia and tendon at neck level, initial encounter (principal); S40.011A Contusion of right shoulder, initial encounter; S20.211A Contusion of right front wall of thorax, initial encounter; W19.XXXA Unspecified fall, initial encounter
CPT/HCPCS: 71250; 93005; 99285; 72125; 73030; 93010; 99284

== ENCOUNTER 2022-12-13 12:03 | Emergency (ER) | payer MEDICAID, SELFPAY ==
[2022-12-13 12:07] VITALS: BP 116/63; PULSE 80; RESP 20; TEMP 36.9; O2SAT 100
--- NOTE | 2022-12-13 13:26 | DI.RAD_ITS ---
Exam(s) XR CHEST 2V PA LATERAL EXAM: XR CHEST 2V PA LATERAL CLINICAL HISTORY: right chest wall pain TECHNIQUE: 2D digital imaging was performed. COMPARISON: No exams were available for comparison FINDINGS: HEART: Normal size. Aorta: Not dilated. PULMONARY VASCULATURE: Normal. LUNGS: Clear. PLEURAL SPACE: No pleural effusion or pneumothorax. BONE:Old right clavicle fracture. No acute fractures identified. IMPRESSION: No acute abnormality. DATA REPOSITORY: RADIATION DOSE DELIVERED:
--- NOTE | 2022-12-13 13:39 | ED.GENADUL_ITS ---
Discharge Plan Discharge Details Chief Complaint: Orthopedic Primary Care Provider: Callie Madison ED Provider: Misael Alvarez Home Meds and New Rx's Prescriptions: No Action multivitamin Tablet 1 tab PO DAILY Medical Decision Making Patient presenting to the emergency department for chief complaint of right chest wall swelling and discomfort. Patient had injury approximately 1 week ago and had a fall while on roller blades. Initially thought injury was minor and so then was raking and felt a significant pull and tear in his chest. Patient was seen here on the and had imaging performed and evaluation and nothing was noted. Patient was given a sling for discomfort. Patient states that he did have some activity afterwards but has noted continued worsening of pain and discomfort. Patient was seen at primary care office today who referred him to the emergency department. Physical exam shows significant swelling erythema and tenderness to the upper portion of the right pectoral muscle. No ecchymosis is noted, patient though does have significant pain and reduction of capacity with abduction of the upper extremity across the chest. Exam of the shoulder and right upper extremity is otherwise unremarkable. We will perform chest x-ray and give patient ibuprofen Chest x-ray reviewed and is unremarkable. We will consult with Ortho as this seems like a high potential of a atypical pectoral tear. I am concerned due to the erythema and tenderness but given that this is all trauma related I doubt this is abscess or local infection. Spoke with Dr. Owusu orthopedic surgeon who recommended MRI imaging for possible pectoral tendon tear. Patient was in agreement with this and we are able to get him into MRI. Imaging Data Radiologic Study: Imaging: X-Ray Radiologist's impression: Exam(s) XR CHEST 2V PA LATERAL EXAM: XR CHEST 2V PA LATERAL CLINICAL HISTORY: right chest wall pain TECHNIQUE: 2D digital imaging was performed. COMPARISON: No exams were available for comparison FINDINGS: HEART: Normal size. Aorta: Not dilated. PULMONARY VASCULATURE: Normal. LUNGS: Clear. PLEURAL SPACE: No pleural effusion or pneumothorax. BONE:Old right clavicle fracture. No acute fractures identified. IMPRESSION: No acute abnormality. HPI General Mode of arrival: ambulatory . Date/Time Provider Initiated Documentation: 12/13/22 12:24 . Limitations to Documentation: no limitations . Information obtained by: patient and RN notes reviewed . History of Present Illness 52 year old M presents to the emergency department with the chief c omplaint of Right chest wall pain, described as moderate, Quality is described as sharp, and is localized to the chest and right. Patient reports no radiation. Patient started experiencing this week(s) (1) and it has been constant. No relieving factors improve symptom(s), Movement worsens symptoms . Patient notes no other symptoms.. Patient did receive the following treatments prior to arrival, NSAID Related Data Home Medications Medication Instructions Recorded Confirmed multivitamin 1 tab PO DAILY 07/18/20 12/13/22 Allergies Allergy/AdvReac Type Severity Reaction Status Date / Time No Known Allergies Allergy Unverified 12/06/22 18:46 General Stated Complaint: Orthopedic EVARISTO: 3 Review of Systems Constitutional Constitutional: Denies chills and Denies fever(s) Cardiovascular Cardiovascular: Denies chest pain and Denies dyspnea Respiratory Respiratory: Denies dyspnea Musculoskeletal Musculoskeletal: Reports as per HPI PFSH All Active Problems (Updated 12/06/22 @ 21:02 by Augustus Reinoso MD) Cervical strain (Acute) Chest wall contusion (Acute) Contusion of shoulder, right (Acute) Tubular adenoma (Acute ~10/2020) Colon polyp, hyperplastic (Acute ~10/2020) Tobacco dependence (Acute) Screening for colon cancer (Acute) No history of previous surgery (Acute) No active medical problems (Acute) Surgical History (Updated 11/02/20 @ 13:30 by Lexy Alejandre) History of colonoscopy (~10/2020) Social History (Updated 10/20/20 @ 10:30 by AIME Quintero) Smoking/Tobacco Use Status: Current every day Tobacco Type: cigarettes Tobacco: How many years used: 40 Smoking risk assessment performed?: Yes Alcohol Intake: never Drug use: Daily Substance use type: marijuana Do you feel safe at home: Yes Do you feel safe in your relationship?: Yes Exam Const General: cooperative, no acute distress and not ill appearing Orientation: alert, awake and oriented x3 HENMT Mouth: moist mucous membranes Chest Chest: abnormal inspection of the chest erythema Chest/axillae images: 1. Chest wall erythema and swelling with tenderness Resp Effort & Inspection: normal respiratory effort, able to speak in complete sentences and no respiratory distress Cardio Rate: regular rate Rhythm: regular rhythm Heart Sounds: S1 normal and S2 normal Pulses: normal peripheral pulses Neuro General: patient alert, patient awake, patient oriented x3, moves all extremities and no focal motor deficits Sensory Exam: no sensory deficits noted Extrem General: normal exam except as noted Right upper extremity: shoulder/upper arm Details: normal to inspection, axillary nerve sensory function normal and normal ROM; no crepitus and no deformity Course Vital Signs Vital signs: Vital Signs Temperature 36.9 C 12/13/22 12:07 Pulse 80 12/13/22 12:07 Respiratory Rate 20 12/13/22 12:07 Blood Pressure 116/63 12/13/22 12:07 Pulse Oximetry 100 12/13/22 12:07 Temperature 36.9 C 12/13/22 12:07 Temperature Source Skin 12/13/22 12:07 Pulse 80 12/13/22 12:07 Respiratory Rate 20 12/13/22 12:07 Respiratory Effort Normal, Non-Labored 12/13/22 13:01 Blood Pressure 116/63 12/13/22 12:07 Blood Pressure Position Sitting 12/13/22 12:07 Pulse Oximetry 100 12/13/22 12:07 Oxygen Delivery Method Room Air 12/13/22 12:07 Oxygen Flow Rate 0 12/13/22 12:07 Pain Level 8 12/13/22 12:07 Sign Out Sign Out Data: Sign Out Comment: Patient pending results from MRI imaging, consult with Dr. Owusu orthopedist and appropriate disposition Last updated by Misael Alvarez NP at 12/13/22 15:52
[2022-12-13] MEDS: Ibuprofen 600 MG TAB PO (13:56)
--- NOTE | 2022-12-13 14:30 | DI.MRI_ITS ---
Exam(s) MR CHEST WO/W EXAM: MR CHEST WO/W CLINICAL HISTORY: Chest wall pain, pectoral tendon tear TECHNIQUE: Multiplanar multisequence MRI of the was performed. CONTRAST MATERIAL: IV Contrast: 15 ML of Dotarem contrast administered. COMPARISON: CT CT CHEST WO from 12/06/2022 FINDINGS: Soft tissues: There is a large irregular fluid collection in the right pectoralis major muscle with a ssociated soft tissue and intramuscular edema. It measures at least 13 by 5 x 6 cm. There smaller p eripherally enhancing fluid collections or non necrotic nodes in the right supraclavicular region and upper mediastinum. The largest measures 7 cm. Bones:Unremarkable. No evidence of a fracture or finding to suggest osteomyelitis. Visualized lungs: Unremarkable. Vasculature/visualized heart: Unremarkable. IMPRESSION: 1. Enhancing fluid collection within the right pectoralis major muscle. Given the symmetry and marke d remarkable appearance of the pectoralis muscles on the CT scan from 12/06/2022, intramuscular absces s with associated adenopathy should be considered. An underlying muscle tear with secondary infectio n should be considered given the patient's history. Neoplastic process is considered less likely giv en the normal appearance of the musculature on the recent CT scan. Aspiration/biopsy of the fluid co llection is recommended. DATA REPOSITORY:
--- NOTE | 2022-12-13 16:08 | W.EDPROG ---
Date of service: 12/13/22 Time of Service: 15:30 Medical Decision Making The patient is a 52-year-old male who fell rollerblading a week ago and was seen here and discharged home. Over the past week he has developed right-sided chest wall pain swelling and redness. There is concern for pectoralis muscle tear. Initial MRI without contrast was suspicious for infection. I did discuss with Ortho who agreed with the MRI with contrast. I also spoke with general surgery who suggested that the patient get a CT with IV contrast. I am awaiting the MRI reading. Imaging Data Radiologic Study: Imaging: MRI (Impression: Large (13.1 cm) irregularly peripherally enhancing fluid collection in the right pectoralis major muscle with similar smaller appearing areas in the right lower neck and right upper mediastinum. Differential diagnosis would include a large intramuscular abscess with associated necrotic') Narrative I have received signout. I have not yet examined the patient who is in MRI currently. I have now seen and examined the patient after discussing with Dr. Wallace the radiologist who recommends CT with contrast to rule out infection. The patient does have erythema and fluctuance over the right anterior chest wall. He denies any IV drug use. He has no history of opiate use disorder but is scared of taking narcotic pain medicine. He is also very anxious because he does not have health insurance. He was given resources at his visit 1 week ago but tells me he has been unable to fill out the paperwork because of pain in the chest wall with writing. I will order blood work and IV acetaminophen which he has agreed to. I will cover him with IV antibiotics. I have reviewed the MRI with and without contrast. It appears that he has an infection that extends to the neck and into the mediastinum. I have spoken with trauma surgery at [facility]. They do not have any beds available but we will speak to the on-call medical authorization specialist regarding ability to accept the patient. The patient has been accepted by Dr. Ricky Payton the thoracic surgeon at [place]. Critical Care Time Critical Care Time Critical Care Time: Yes Total Critical Care Time: 66 Attestation: Bedside care, review of old records, review of labs CT and consultations with [facility] gastroenterology. Time with family and reassessment of the patient. Sign Out Sign Out Data: Sign Out Comment: Patient pending results from MRI imaging, consult with Dr. Owusu orthopedist and appropriate disposition Last updated by Misael Alvarez NP at 12/13/22 15:52 Discharge Plan Disposition Patient Disposition: Transfer-Acute Inpatient Care Specific Acute Inpt Facility: Other Discharge Details Clinical Impression: Abscess of parasternal chest wall, Anemia, Leukocytosis, Chest wall contusion, Contusion of shoulder, right, Hematoma of right chest wall, Tobacco dependence Primary Care Provider: Callie Madison ED Provider: Anamaria Cai Home Meds and New Rx's Prescriptions: No Action multivitamin Tablet 1 tab PO DAILY Discharge Data Discharge Physician: Anamaria Cai
[2022-12-13 16:47] LABS: Lactate 1.4 mmol/L (0.6-1.4)
[2022-12-13 16:48] LABS: Abs Immature Grans 0.15 10^3/uL (0.0-0.06); HCT 27.7 % (40.0-50.0); HGB 9.7 g/dL (13.5-17.5); MCH 31.4 pg (27.0-33.0); MCV 90 fL (80-95); MPV 9.8 fL (8.0-11.0); Platelet Count 321 10^3/uL (130-400); RBC 3.09 10^6/uL (4.36-5.78); RDW 13.7 % (11.8-14.1); RDW-SD 45.1 fL; WBC 19.17 10^3/uL (4.4-10.8)
[2022-12-13 16:51] LABS: ESR 102 mm/hr (0-20)
[2022-12-13] MEDS: Normal Saline Flush 10 ML SYR IVP (16:53)
[2022-12-13] MEDS: Gadoterate meglumine 20 ML SYRINGE 15 ML IVP (16:54)
[2022-12-13 17:00] LABS: Absolute Lymphocyte Count 0.96 10^3/uL (1.2-3.4); Absolute Monocyte Count 0.77 10^3/uL (0.1-0.8); Absolute Neutrophil Count 17.44 10^3/uL (1.2-6.7); Bands % 15
[2022-12-13 17:01] LABS: Diff Comment Manual Differential; RBC Morphology Normal
[2022-12-13 17:07] LABS: ALT 81 U/L (16-63); AST 36 U/L (15-37); Alkaline Phosphatase 181 U/L (46-116); Anion Gap 11.9 mmol/L (3-11); BUN 24 mg/dL (7-18); Bilirubin, Total 0.5 mg/dL (0.2-1.0); CO2 26.1 mmol/L (21.0-32.0); CREATININE 0.9 mg/dL (0.70-1.30); Calcium 9.4 mg/dL (8.5-10.1); Chloride 98 mmol/L (98-107); Estimated GFR 102.76 (mL/min/1.73m2); Glucose 111 mg/dL (74-106); Magnesium 1.6 mg/dL (1.8-2.4); Sodium 136 mmol/L (136-145); Total Protein 6.6 g/dL (6.4-8.2)
--- NOTE | 2022-12-13 17:27 | W.ORTHOCONSU ---
Date of service: 12/13/22 Time of Service: 17:27 Assessment and Plan Assessment and plan (1) Hematoma of right chest wall: Status: Acute Assessment and plan: 52 year old male with Right chest problem: Pectoralis muscle injury and/or infected hematoma. Discussed with emergency room doctor. Recommend completing labwork and MRI, which have been done and reviewed and show potential infected chest wall hematoma. Reviewed potential need for aspiration/ decompression, surgical I&D, and admission for IV ABX. No orthopedics psychologist industrial organizational. Recommend discussion with [facility] and/or general surgeon psychologist industrial organizational based contrast MRI findings, which is still pending. PFSH All Active Problems (Updated 12/13/22 @ 17:28 by Tyson Owusu MD) Hematoma of right chest wall (Acute) Cervical strain (Acute) Chest wall contusion (Acute) Contusion of shoulder, right (Acute) Tubular adenoma (Acute ~10/2020) Colon polyp, hyperplastic (Acute ~10/2020) Tobacco dependence (Acute) Screening for colon cancer (Acute) No history of previous surgery (Acute) No active medical problems (Acute) Surgical History (Updated 11/02/20 @ 13:30 by Lexy Alejandre) History of colonoscopy (~10/2020) Social History (Updated 10/20/20 @ 10:30 by AIME Quintero) Smoking/Tobacco Use Status: Current every day Tobacco Type: cigarettes Tobacco: How many years used: 40 Smoking risk assessment performed?: Yes Alcohol Intake: never Drug use: Daily Substance use type: marijuana Do you feel safe at home: Yes Do you feel safe in your relationship?: Yes Results Last Vital Signs Temp 98.4 F 12/13/22 12:07 Pulse 80 12/13/22 12:07 Resp 20 12/13/22 12:07 BP 116/63 12/13/22 12:07 Pulse Ox 100 12/13/22 12:07 Labs 12/13/22 16:39 12/13/22 16:39 Labs: Laboratory Results - last 24 hr 12/13/22 12/13/22 12/13/22 16:39 16:39 16:39 WBC 19.17 H RBC 3.09 L Hgb 9.7 L Hct 27.7 L MCV 90 MCH 31.4 MCHC 35.0 RDW 13.7 Plt Count 321 MPV 9.8 Immature Gran % 0.0 Neutrophils % 76.0 Band Neutrophils % 15 Lymphocytes % 5.0 Monocytes % 4.0 Eosinophils % 0.0 Basophils % 0.0 Nucleated RBC % 0.0 Absolute Neutrophils 17.44 H Absolute Lymphocytes 0.96 L Absolute Monocytes 0.77 Absolute Eosinophils 0.00 Absolute Basophils 0.00 RBC Morphology Normal ESR 102 H VBG Lactate Sodium 136 Potassium 3.0 L Chloride 98 Carbon Dioxide 26.1 Anion Gap 11.9 H BUN 24 H Creatinine 0.9 Est GFR (CKD-EPI 2020) 102.76 Glucose 111 H Calcium 9.4 Magnesium 1.6 L Total Bilirubin 0.5 AST 36 ALT 81 H Alkaline Phosphatase 181 H Total Protein 6.6 Albumin 2.0 L 12/13/22 16:39 WBC RBC Hgb Hct MCV MCH MCHC RDW Plt Count MPV Immature Gran % Neutrophils % Band Neutrophils % Lymphocytes % Monocytes % Eosinophils % Basophils % Nucleated RBC % Absolute Neutrophils Absolute Lymphocytes Absolute Monocytes Absolute Eosinophils Absolute Basophils RBC Morphology ESR VBG Lactate 1.4 Sodium Potassium Chloride Carbon Dioxide Anion Gap BUN Creatinine Est GFR (CKD-EPI 2020) Glucose Calcium Magnesium Total Bilirubin AST ALT Alkaline Phosphatase Total Protein Albumin
[2022-12-13 17:36] LABS: C-Reactive Protein > 25.00 mg/dL (0.0-0.3)
[2022-12-13] MEDS: ceFAZolin 1 GM/50 ML BAG IVPB (17:44)
[2022-12-13] MEDS: Normal Saline 1,000 ML 1000 ML IV (17:45)
[2022-12-13 18:01] VITALS: BP 132/80; RESP 20; TEMP 36.9; O2SAT 95
--- NOTE | 2022-12-13 18:07 | DI.VRAD_ITS ---
PROCEDURE INFORMATION: Exam: MR Chest Without and With Contrast. Exam date and time: 12/13/2022 3:40 PM Age: 52 years old Clinical indication: Chest wall pain and right-sided; Patient HX: Fell on RT shoulder 2 weeks ago, redness and swelling over pectoral muscle TECHNIQUE: Imaging protocol: MR chest without and with intravenous contrast. Contrast material: DOTAREM; Contrast volume: 15 ml; Contrast route: INTRAVENOUS (IV); COMPARISON: CT CHEST WO 12/06/2022 7:49 PM FINDINGS: Lungs: Unremarkable. Heart: Unremarkable. Pleural spaces: No pleural effusion. Bones/joints: Unremarkable. No acute fracture. No findings suspicious for osteomyelitis. Soft tissues: There is a large (13.1 x 5.2 x 5.6 cm) irregular fluid collection in the right pectoralis major muscle with surrounding soft tissue edema and enhancement. Remainder of the pectoralis major muscle appears diffusely edematous. Overlying subcutaneous edema noted. Smaller, peripherally enhancing fluid collections or necrotic nodes are noted in the medial right supraclavicular region and right upper mediastinum, the largest in the right lower neck measuring approximately 7 cm in craniocaudad diameter. IMPRESSION: Large (13.1 cm) irregular peripherally enhancing fluid collection in the right pectoralis major muscle with similar smaller appearing areas in the right lower neck and upper mediastinum. Differential diagnosis would include large intramuscular abscess with associated necrotic lymphadenopathy versus necrotic soft tissue sarcoma with murray metastases as most likely etiology. There is a given history of recent trauma and organized hematoma with superimposed infection would also be of consideration. Image guided aspiration/biopsy of the largest area of abnormality in the right pectoralis muscle recommended for further evaluation Dictated and Authenticated by: Kirby Brody MD. Ordering:LILIANA Douglas MD
[2022-12-13] MEDS: MAGNESIUM SULFATE 2 GM/50 ML BAG IVPB (18:15)
[2022-12-13] MEDS: VANCOMYCIN/WATER (PEG) 1 GM/200 ML BAG IVPB (18:50)
[2022-12-13] MEDS: ACETAMINOPHEN 1,000 MG/100 ML BTL 400 MG IVPB (19:02)
--- NOTE | 2022-12-13 21:44 | SCONE_ITS ---
Date of service: 12/13/22 Time of Service: 18:00 Assessment and Plan Assessment and plan (1) Abscess of parasternal chest wall: Status: Acute Assessment and plan: 52 yo man with complex abscesses of chest wall, neck and mediastinum. My guess is this is an infected hematoma and the infection has spread in the soft tissue to the various locations. I doubt this is malignancy which was raised as a po ssibility. Regardless, this is pretty extensive, multi-focal and in some difficult places surgically. Multi-disciplinary approach with IR, Thoracic and H&N surgery is probably going to be necessary. I recommend transferring him to a facility where these specialty services are available to him. History of Present Illness Narrative: Asked by ED to weigh in on a patient who fell a week or so ago and is now presenting with leukocytosis, anemia and chest wall tenderness. MRI shows large (13cm) chest wall abscess(within the pec muscle) including other smaller abscesses (7cm) in the soft tissue of the neck, under the clavicle and also a collection in the mediastinum. PFSH All Active Problems (Updated 12/13/22 @ 21:42 by Anamaria Cai MD) Abscess of parasternal chest wall (Acute) Anemia (Chronic) Leukocytosis (Acute) Hematoma of right chest wall (Acute) Cervical strain (Acute) Chest wall contusion (Acute) Contusion of shoulder, right (Acute) Tubular adenoma (Acute ~10/2020) Colon polyp, hyperplastic (Acute ~10/2020) Tobacco dependence (Acute) Screening for colon cancer (Acute) No history of previous surgery (Acute) No active medical problems (Acute) Surgical History (Updated 11/02/20 @ 13:30 by Lexy Alejandre) History of colonoscopy (~10/2020) Social History (Updated 10/20/20 @ 10:30 by AIME Quintero) Smoking/Tobacco Use Status: Current every day Tobacco Type: cigarettes Tobacco: How many years used: 40 Smoking risk assessment performed?: Yes Alcohol Intake: never Drug use: Daily Substance use type: marijuana Do you feel safe at home: Yes Do you feel safe in your relationship?: Yes Exam Narrative Exam Narrative: HD stable per ED Results Last Vital Signs Temp 98.4 F 12/13/22 18:01 Pulse 80 12/13/22 12:07 Resp 20 12/13/22 18:01 BP 132/80 09/01/23 18:01 Pulse Ox 95 12/13/22 18:01 Labs 12/13/22 16:39 12/13/22 16:39 Labs: Laboratory Results - last 24 hr 12/13/22 12/13/22 12/13/22 16:39 16:39 16:39 WBC 19.17 H RBC 3.09 L Hgb 9.7 L Hct 27.7 L MCV 90 MCH 31.4 MCHC 35.0 RDW 13.7 Plt Count 321 MPV 9.8 Immature Gran % 0.0 Neutrophils % 76.0 Band Neutrophils % 15 Lymphocytes % 5.0 Monocytes % 4.0 Eosinophils % 0.0 Basophils % 0.0 Nucleated RBC % 0.0 Absolute Neutrophils 17.44 H Absolute Lymphocytes 0.96 L Absolute Monocytes 0.77 Absolute Eosinophils 0.00 Absolute Basophils 0.00 RBC Morphology Normal ESR 102 H VBG Lactate Sodium 136 Potassium 3.0 L Chloride 98 Carbon Dioxide 26.1 Anion Gap 11.9 H BUN 24 H Creatinine 0.9 Est GFR (CKD-EPI 2020) 102.76 Glucose 111 H Calcium 9.4 Magnesium 1.6 L Total Bilirubin 0.5 AST 36 ALT 81 H Alkaline Phosphatase 181 H C-Reactive Protein > 25.00 H Total Protein 6.6 Albumin 2.0 L 12/13/22 16:39 WBC RBC Hgb Hct MCV MCH MCHC RDW Plt Count MPV Immature Gran % Neutrophils % Band Neutrophils % Lymphocytes % Monocytes % Eosinophils % Basophils % Nucleated RBC % Absolute Neutrophils Absolute Lymphocytes Absolute Monocytes Absolute Eosinophils Absolute Basophils RBC Morphology ESR VBG Lactate 1.4 Sodium Potassium Chloride Carbon Dioxide Anion Gap BUN Creatinine Est GFR (CKD-EPI 2020) Glucose Calcium Magnesium Total Bilirubin AST ALT Alkaline Phosphatase C-Reactive Protein Total Protein Albumin
[2022-12-13] MEDS: Ketorolac 30 MG/ML VIAL IVP (22:12)
[2022-12-13] MEDS: Normal Saline 1,000 ML 150 ML IV (22:13)
--- NOTE | 2022-12-15 10:07 | NUR.NOTE ---
Preliminary blood culture results faxed to [facility]. Nursing Note:
== END 2022-12-13 22:16 | disposition short-term general hospital (02) ==
PROVIDERS: Emergency Provider Emergency Medicine Emergency Medical Services; PCP Family Medicine
DX: S20.211A Contusion of right front wall of thorax, initial encounter (principal); L02.213 Cutaneous abscess of chest wall; D64.9 Anemia, unspecified; D72.829 Elevated white blood cell count, unspecified; S40.011A Contusion of right shoulder, initial encounter; W19.XXXA Unspecified fall, initial encounter
CPT/HCPCS: 36415; 71552; 80053; 85652; 87040; 87077; 96365; 96368; 96375; 99291; 71046; 83605; 83735; 85025; 86140; 87186; J0131; J0690; J1885

== ENCOUNTER 2022-12-30 15:25 | Outpatient (REF) | payer MEDICAID, SELFPAY ==
[2022-12-30 18:10] LABS: Abs Immature Grans 0.01 10^3/uL (0.0-0.06); Absolute Basophil Count 0.05 10^3/uL (0.0-0.2); Absolute Eosinophil Count 0.19 10^3/uL (0.0-0.7); Absolute Lymphocyte Count 1.09 10^3/uL (1.2-3.4); Absolute Monocyte Count 0.54 10^3/uL (0.1-0.8); Absolute Neutrophil Count 4.33 10^3/uL (1.2-6.7); Basophils % 0.8; Eosinophils % 3.1; HGB 9.3 g/dL (13.5-17.5); Immature Grans % 0.2; Lymphocytes % 17.6; MCH 30.6 pg (27.0-33.0); MCV 102 fL (80-95); MPV 9.6 fL (8.0-11.0); Monocytes % 8.7; Neutrophils % 69.6; Platelet Count 436 10^3/uL (130-400); RBC 3.04 10^6/uL (4.36-5.78); RDW 14.6 % (11.8-14.1); RDW-SD 54.5 fL; WBC 6.21 10^3/uL (4.4-10.8)
[2022-12-30 18:54] LABS: ALT 81 U/L (16-63); AST 36 U/L (15-37); Albumin 2.6 g/dL (3.4-5.0); Alkaline Phosphatase 139 U/L (46-116); Anion Gap 10.7 mmol/L (3-11); BUN 26 mg/dL (7-18); Bilirubin, Total 0.1 mg/dL (0.2-1.0); CO2 22.3 mmol/L (21.0-32.0); CREATININE 0.9 mg/dL (0.70-1.30); Calcium 9.3 mg/dL (8.5-10.1); Chloride 103 mmol/L (98-107); Estimated GFR 102.76 (mL/min/1.73m2); Glucose 90 mg/dL (74-106); Potassium 4.6 mmol/L (3.5-5.1); Sodium 136 mmol/L (136-145); Total Protein 6.9 g/dL (6.4-8.2)
== END 2022-12-30 15:26 | disposition home or self-care (01) ==
LOC: LBN 15:25
PROVIDERS: PCP Family Medicine
DX: L02.213 Cutaneous abscess of chest wall (principal); R78.81 Bacteremia
CPT/HCPCS: 80053; 85025

== ENCOUNTER 2023-01-06 17:42 | Outpatient (REF) | payer MEDICAID, SELFPAY ==
[2023-01-06 19:48] LABS: Abs Immature Grans 0.01 10^3/uL (0.0-0.06); Absolute Basophil Count 0.02 10^3/uL (0.0-0.2); Absolute Eosinophil Count 0.23 10^3/uL (0.0-0.7); Absolute Lymphocyte Count 1.39 10^3/uL (1.2-3.4); Absolute Monocyte Count 0.49 10^3/uL (0.1-0.8); Absolute Neutrophil Count 3.34 10^3/uL (1.2-6.7); Basophils % 0.4; Eosinophils % 4.2; HCT 35.1 % (40.0-50.0); Immature Grans % 0.2; Lymphocytes % 25.4; MCH 30.8 pg (27.0-33.0); MCHC 31.3 % (32.0-36.0); MCV 98 fL (80-95); MPV 9.6 fL (8.0-11.0); Monocytes % 8.9; Neutrophils % 60.9; Platelet Count 331 10^3/uL (130-400); RBC 3.57 10^6/uL (4.36-5.78); RDW 13.9 % (11.8-14.1); RDW-SD 50.4 fL; WBC 5.48 10^3/uL (4.4-10.8)
[2023-01-06 20:01] LABS: ALT 43 U/L (16-63); AST 20 U/L (15-37); Alkaline Phosphatase 131 U/L (46-116); Anion Gap 10.1 mmol/L (3-11); BUN 18 mg/dL (7-18); Bilirubin, Total 0.1 mg/dL (0.2-1.0); CO2 24.9 mmol/L (21.0-32.0); CREATININE 0.9 mg/dL (0.70-1.30); Calcium 9.1 mg/dL (8.5-10.1); Chloride 104 mmol/L (98-107); Estimated GFR 102.12 (mL/min/1.73m2); Glucose 68 mg/dL (74-106); Potassium 4.5 mmol/L (3.5-5.1); Sodium 139 mmol/L (136-145); Total Protein 7.4 g/dL (6.4-8.2)
== END 2023-01-06 17:43 | disposition home or self-care (01) ==
LOC: LBN 17:42
PROVIDERS: PCP Family Medicine
DX: L02.213 Cutaneous abscess of chest wall (principal); A49.01 Methicillin susceptible Staphylococcus aureus infection, unspecified site
CPT/HCPCS: 80053; 85025

== ENCOUNTER 2023-01-15 21:09 | Outpatient (REF) | payer MEDICAID, SELFPAY ==
[2023-01-15 21:32] LABS: Abs Immature Grans 0.01 10^3/uL (0.0-0.06); Absolute Basophil Count 0.04 10^3/uL (0.0-0.2); Absolute Eosinophil Count 0.11 10^3/uL (0.0-0.7); Absolute Lymphocyte Count 0.88 10^3/uL (1.2-3.4); Eosinophils % 2.9; HCT 36.5 % (40.0-50.0); HGB 11.4 g/dL (13.5-17.5); Immature Grans % 0.3; Lymphocytes % 22.9; MCH 30.4 pg (27.0-33.0); MCHC 31.2 % (32.0-36.0); MCV 97 fL (80-95); MPV 10.4 fL (8.0-11.0); Monocytes % 10.4; Neutrophils % 62.5; Platelet Count 244 10^3/uL (130-400); RBC 3.75 10^6/uL (4.36-5.78); RDW 13.2 % (11.8-14.1); RDW-SD 47.5 fL; WBC 3.84 10^3/uL (4.4-10.8)
[2023-01-15 22:02] LABS: ALT 31 U/L (16-63); AST 20 U/L (15-37); Alkaline Phosphatase 119 U/L (46-116); Anion Gap 12.7 mmol/L (3-11); BUN 23 mg/dL (7-18); Bilirubin, Total 0.1 mg/dL (0.2-1.0); CO2 21.3 mmol/L (21.0-32.0); CREATININE 1.2 mg/dL (0.70-1.30); Calcium 8.8 mg/dL (8.5-10.1); Chloride 105 mmol/L (98-107); Estimated GFR 72.31 (mL/min/1.73m2); Glucose 220 mg/dL (74-106); Potassium 3.7 mmol/L (3.5-5.1); Sodium 139 mmol/L (136-145); Total Protein 6.9 g/dL (6.4-8.2)
== END 2023-01-15 21:10 | disposition home or self-care (01) ==
LOC: LBN 21:09
PROVIDERS: PCP Family Medicine
DX: L02.213 Cutaneous abscess of chest wall (principal); A49.01 Methicillin susceptible Staphylococcus aureus infection, unspecified site
CPT/HCPCS: 80053; 85025

== ENCOUNTER 2023-01-21 12:28 | Outpatient (REF) | payer MEDICAID, SELFPAY ==
[2023-01-21 13:24] LABS: Absolute Basophil Count 0.02 10^3/uL (0.0-0.2); Absolute Eosinophil Count 0.13 10^3/uL (0.0-0.7); Absolute Lymphocyte Count 0.77 10^3/uL (1.2-3.4); Absolute Monocyte Count 0.35 10^3/uL (0.1-0.8); Absolute Neutrophil Count 1.89 10^3/uL (1.2-6.7); Basophils % 0.6; Eosinophils % 4.1; HCT 38.9 % (40.0-50.0); HGB 12.4 g/dL (13.5-17.5); Lymphocytes % 24.4; MCH 30.4 pg (27.0-33.0); MCHC 31.9 % (32.0-36.0); MCV 95 fL (80-95); MPV 9.6 fL (8.0-11.0); Monocytes % 11.1; Neutrophils % 59.8; Platelet Count 229 10^3/uL (130-400); RBC 4.08 10^6/uL (4.36-5.78); RDW 13.2 % (11.8-14.1); RDW-SD 46.3 fL; WBC 3.16 10^3/uL (4.4-10.8)
[2023-01-21 13:52] LABS: ALT 22 U/L (16-63); AST 20 U/L (15-37); Albumin 3.1 g/dL (3.4-5.0); Alkaline Phosphatase 111 U/L (46-116); Anion Gap 12.9 mmol/L (3-11); BUN 18 mg/dL (7-18); Bilirubin, Total 0.2 mg/dL (0.2-1.0); CO2 21.1 mmol/L (21.0-32.0); CREATININE 0.9 mg/dL (0.70-1.30); Calcium 8.8 mg/dL (8.5-10.1); Chloride 105 mmol/L (98-107); Estimated GFR 102.12 (mL/min/1.73m2); Glucose 198 mg/dL (74-106); Sodium 139 mmol/L (136-145)
== END 2023-01-21 12:29 | disposition home or self-care (01) ==
LOC: LBN 12:28
PROVIDERS: PCP Family Medicine; Visit Provider Radiology Diagnostic Radiology
DX: R78.81 Bacteremia (principal)
CPT/HCPCS: 80053; 85025

== ENCOUNTER 2024-12-20 16:46 | Outpatient (REF) | payer BC, SELFPAY ==
[2024-12-20 14:38] LABS: HCT 42.0 % (40.0-50.0); HGB 14.2 g/dL (13.5-17.5); MCH 30.9 pg (27.0-33.0); MCHC 33.8 % (32.0-36.0); MCV 92 fL (80-95); MPV 10.7 fL (8.0-11.0); Platelet Count 215 10^3/uL (130-400); RBC 4.59 10^6/uL (4.36-5.78); RDW 12.5 % (11.8-14.1); RDW-SD 41.6 fL; WBC 6.55 10^3/uL (4.4-10.8)
[2024-12-20 15:03] LABS: ALT 30 U/L (16-63); AST 16 U/L (15-37); Albumin 3.6 g/dL (3.4-5.0); Alkaline Phosphatase 103 U/L (46-116); Anion Gap 9.9 mmol/L (3-11); BUN 17 mg/dL (7-18); Bilirubin, Total 0.4 mg/dL (0.2-1.0); CO2 26.1 mmol/L (21.0-32.0); Calcium 9.0 mg/dL (8.5-10.1); Calculated LDL 135 mg/dL (<100); Chloride 106 mmol/L (98-107); Cholesterol 203 mg/dL (<200); Estimated GFR 89.44 (mL/min/1.73m2); Glucose 107 mg/dL (74-106); HDL Cholesterol 41 mg/dL (>or=40); Potassium 4.3 mmol/L (3.5-5.1); Sodium 142 mmol/L (136-145); Total Protein 7.0 g/dL (6.4-8.2); Triglyceride 136 mg/dL (<150)
== END 2024-12-20 16:47 | disposition home or self-care (01) ==
LOC: NCHCN 16:46
PROVIDERS: PCP Family Medicine; Visit Provider Family Medicine
DX: Z00.00 Encounter for general adult medical examination without abnormal findings (principal); E78.5 Hyperlipidemia, unspecified
CPT/HCPCS: 80053; 80061; 85027